=== PATIENT | male | born 1950 | race Caucasian/White ===

== ENCOUNTER 2024-04-19 20:16 | Inpatient (IN) | payer OTHER ==
[~2024-04-19] VITALS: Ht 170.2 cm; Wt 65.3 kg
[2024-04-19 20:19] VITALS: BP 121/63; PULSE 89; RESP 20; TEMP 97.8; O2SAT 99
[2024-04-19] MEDS: NACL 0.9% 1,000 ML IV ONE (21:10)
[2024-04-19 21:49] LABS: MEAN CORPUSCULAR HGB CONC 33 g/dL (33-37)
[2024-04-19 21:52] LABS: HEMOGLOBIN 14.1 g/dL (12.0-18.0); MEAN CORPUSCULAR HEMOGLOBIN 31 pg (27-31); MEAN CORPUSCULAR VOLUME 96.1 fL (80-94); PLATELET COUNT (AUTO) 277 K/uL (140-450); RED BLOOD CELL COUNT(AUTO) 4.48 MIL/uL (4.20-6.10); RED CELL DISTRIBUTION WIDTH 13.8 % (11.6-13.7)
[2024-04-19 22:00] LABS: CALCIUM 9.8 mg/dL (8.5-10.1); CARBON DIOXIDE 22.2 mmol/L (21-32); CHLORIDE 102 mmol/L (98-107); CREATININE 1.8 mg/dL (0.6-1.3); GLUCOSE 143 mg/dL (74-106); POTASSIUM 4.2 mmol/L (3.5-5.1); SODIUM SERUM 140 mmol/L (136-145); UREA NITROGEN, BLOOD 20 mg/dL (7-18)
[2024-04-19 22:05] LABS: ALBUMIN 4.4 g/dL (3.4-5.0); BASOPHILS % (MANUAL) 0 % (0-2); BILIRUBIN,DIRECT 0.1 mg/dL (0.0-0.3); EOSINOPHILS % (MANUAL) 0 % (0-4); LYMPHOCYTES % (MANUAL) 8 % (20-46); MONOCYTES % (MANUAL) 4 % (5-12); TOTAL BILIRUBIN 0.4 mg/dL (0.0-1.0)
[2024-04-19 22:06] LABS: ANISOCYTOSIS 1+
[2024-04-19 22:11] LABS: LACTIC ACID 5.3 mmol/L (0.4-2.0)
[2024-04-19] MEDS: metroNIDAZOLE 500 MG/NS PREMIX 100 ML IV ONE (23:39)
[2024-04-20] MEDS ORDERED: ROSU40TA PO (01:28)
[2024-04-20] MEDS ORDERED: INSU100S22 SUBQ ×2 (01:28→21:59)
[2024-04-20] MEDS ORDERED: FOS70 PO (01:28)
[2024-04-20] MEDS ORDERED: ZYL300 PO (01:28)
[2024-04-20] MEDS ORDERED: LISI-951 PO (01:28)
[2024-04-20] MEDS ORDERED: FLEC100T1 PO (01:28)
[2024-04-20] MEDS ORDERED: METF-350 PO (01:28)
[2024-04-20] MEDS ORDERED: DILT-135 PO (01:28)
[2024-04-20 02:39] LABS: APPEARANCE,URINE CLEAR (CLEAR); BILIRUBIN,URINE NEGATIVE (NEGATIVE); BLOOD, URINE NEGATIVE (NEGATIVE); COLOR,URINE YELLOW (YELLOW); LEUKOCYTE ESTERASE ,URINE NEGATIVE (NEGATIVE); NITRITE, URINE NEGATIVE (NEGATIVE); PROTEIN,URINE NEGATIVE (NEGATIVE); UGLUCOSE NEGATIVE (NEGATIVE); UROBILINOGEN,URINE 0.2 EU/dL (0.2 - 1)
[2024-04-20] MEDS ORDERED: ACETAMINOPHEN 325 MG TAB PO PRN (06:05)
[2024-04-20] MEDS ORDERED: ONDANSETRON 4 MG/2 ML VIAL IVP PRN (06:05)
[2024-04-20] MEDS ORDERED: HYDROcodone/APAP 5/325 MG 1 TAB TAB PO PRN (06:05)
[2024-04-20] MEDS: NACL 0.9% 1,000 ML IV SCH (07:53)
[2024-04-20 08:15] VITALS: O2SAT 98
[2024-04-20] MEDS ORDERED: APIX5TAB PO (11:00)
[2024-04-20] MEDS: metroNIDAZOLE 500 MG/NS PREMIX 100 ML IV SCH (13:14)
[2024-04-20 15:00] VITALS: PULSE 82; RESP 18; O2SAT 98
[2024-04-20] MEDS ORDERED: DEXTROSE 50% 50 ML SYR IVP PRN (19:55)
[2024-04-20] MEDS ORDERED: INSULIN LANTUS 100 UNITS/ML 10 ML VIAL SUBQ SCH (19:55)
[2024-04-20 20:00] VITALS: BP 124/62; PULSE 80; RESP 18; TEMP 98; O2SAT 98
[2024-04-20] MEDS: BLOOD GLUCOSE MONITORING 1 DEV DEV FS SCH (20:38)
[2024-04-20] MEDS: APIXABAN 2.5 MG TAB PO SCH (20:38)
[2024-04-20] MEDS: INSULIN LISPRO SLIDING SCALE 100 UNITS/ML VIAL SUBQ PRN (20:40)
[2024-04-20] MEDS: INSULIN LANTUS 100 UNITS/ML 10 ML VIAL SUBQ SCH (20:41)
[2024-04-20 21:56] VITALS: PULSE 78
[2024-04-21] VITALS (7 sets, daily range): BP systolic 126–134; BP diastolic 66–71; PULSE 68–85; RESP 18; TEMP 97.4–98.2; O2SAT 97–98
[2024-04-21 05:58] LABS: BASOPHILS % (AUTO) 0.4 % (0.0-2.0); EOSINOPHILS # (AUTO) 0.8 K/uL (0-0.4); EOSINOPHILS % (AUTO) 12.3 % (0.0-4.0); HEMATOCRIT 33.1 % (36-52); HEMOGLOBIN 11.4 g/dL (12.0-18.0); LYMPHOCYTES # (AUTO) 1.7 K/uL (2.0-11.5); LYMPHOCYTES % (AUTO) 24.5 % (20.5-51.1); MEAN CORPUSCULAR HEMOGLOBIN 33 pg (27-31); MEAN CORPUSCULAR HGB CONC 34 g/dL (33-37); MEAN CORPUSCULAR VOLUME 94.8 fL (80-94); MONOCYTES # (AUTO) 0.8 K/uL (0.8-1.0); MONOCYTES % (AUTO) 11.4 % (1.7-9.3); NEUTROPHILS # (AUTO) 3.5 K/uL (1.8-7.7); NEUTROPHILS % (AUTO) 51.4 % (42.2-75.2); PLATELET COUNT (AUTO) 225 K/uL (140-450); RED BLOOD CELL COUNT(AUTO) 3.49 MIL/uL (4.20-6.10); RED CELL DISTRIBUTION WIDTH 13.5 % (11.6-13.7); WHITE BLOOD COUNT (AUTO) 6.8 K/uL (4.8-10.8)
[2024-04-21 06:12] LABS: ANION GAP 11.3 (8-16); CALCIUM 7.9 mg/dL (8.5-10.1); CARBON DIOXIDE 25.9 mmol/L (21-32); CHLORIDE 107 mmol/L (98-107); GLUCOSE 153 mg/dL (74-106); POTASSIUM 4.2 mmol/L (3.5-5.1); SODIUM SERUM 140 mmol/L (136-145); UREA NITROGEN, BLOOD 15 mg/dL (7-18)
[2024-04-21] MEDS: ATORVASTATIN 80 MG TAB PO SCH (08:45)
[2024-04-21] MEDS: DILTIAZEM 120 MG CAPER PO SCH (08:45)
[2024-04-21] MEDS: lisinopriL 10 MG TAB PO SCH (08:46)
[2024-04-21] MEDS: allopurinoL 300 MG TAB PO SCH (08:49)
[2024-04-21] MEDS ORDERED: NON-FORMULARY ITEM (Rosuvastatin Calcium* (Crestor*) 1 TAB) PO SCH (09:00)
[2024-04-21] MEDS ORDERED: METR-435 PO ×2 (11:32→11:34)
== END 2024-04-21 13:00 | disposition home or self-care (01) | DRG 391 ==
LOC: MED 20:16 → MMU 04-20 06:06
PROVIDERS: ADMIT Student in an Organized Health Care Education/Training Program; ATTEND Student in an Organized Health Care Education/Training Program
DX: A08.4 Viral intestinal infection, unspecified (principal); N17.0 Acute kidney failure with tubular necrosis; D72.829 Elevated white blood cell count, unspecified
CPT/HCPCS: 36415; 71045; 80048; 80076; 81003; 82948; 83605; 85025; 87040; 87081; 87086; 93005; 96361; 96365; 99285; J1815; J3490